=== PATIENT | female | born 1995 | race Caucasian/White ===

== ENCOUNTER → 2016-10-03 | Outpatient (CLI) | payer BC ==
--- NOTE | 2016-10-03 09:24 | DIAGNOSTIC IMAGING REPORT ---
LEFT HIP UNILATERAL 2 VIEWS CLINICAL HISTORY: Left hip pain COMPARISON: None. DISCUSSION: No fractures or dislocations are visualized. There are no erosive or destructive changes. IMPRESSION: Unremarkable conventional radiographic evaluation of the left hip. Electronically signed by: Freny Johnson M.D. 10/03/2016 9:23 AM Dictated Date/Time: 10/03/2016 9:22 AM
--- NOTE | 2016-10-03 09:25 | DIAGNOSTIC IMAGING REPORT ---
RIGHT HIP UNILATERAL 2 VIEWS CLINICAL HISTORY: Right hip pain COMPARISON: None. DISCUSSION: No fractures dislocations or destructive lesions are visualized. IMPRESSION: Unremarkable conventional radiographic evaluation of the right hip. Electronically signed by: Ferny Johnson M.D. 10/03/2016 9:23 AM Dictated Date/Time: 10/03/2016 9:23 AM
--- NOTE | 2016-10-03 09:26 | DIAGNOSTIC IMAGING REPORT ---
SACRUM COCCYX MIN 2 VIEWS CLINICAL HISTORY: Low back pain COMPARISON STUDY: No previous studies for comparison. FINDINGS: No fractures are visualized. There are no destructive lesions. IMPRESSION: No significant abnormalities identified. Electronically signed by: Ferny Johnson M.D. 10/03/2016 9:25 AM Dictated Date/Time: 10/03/2016 9:23 AM
== END | disposition home or self-care (01) ==
LOC: C.RAD1850 09:00
PROVIDERS: ATTEND Nurse Practitioner Family
DX: M54.5 Low back pain (principal)

== ENCOUNTER → 2018-02-20 | Outpatient (CLI) | payer OTHER ==
--- NOTE | 2018-02-20 10:07 | DIAGNOSTIC IMAGING REPORT ---
PELVIS/BILATERAL HIP 2 VIEWS: Left hip CLINICAL HISTORY: Pain trauma. Pain. COMPARISON STUDY: None FINDINGS: Moderate degenerative change left hip. Degenerative sclerotic change left sacroiliac joint. Moderate reactive osteophytic change. IMPRESSION: Degenerative change. No acute process. The above report was generated using voice recognition software. It may contain grammatical, syntax or spelling errors. Electronically signed by: Niko Jordan M.D. 02/20/2018 10:06 AM Dictated Date/Time: 02/20/2018 10:05 AM
== END | disposition home or self-care (01) ==
LOC: C.RAD1850 09:36
PROVIDERS: ATTEND Family Medicine
DX: M25.551 Pain in right hip (principal)